=== PATIENT | male | born 1995 | race African-American/Black ===

== ENCOUNTER 2016-05-12 05:34 | Emergency (ER) | payer OTHER ==
--- NOTE | ~2016-05-12 | EKG ---
PATIENT: DEMARIO CORDOBA UNIT #: [id number] Ventricular Rate: 63 BPM Atrial Rate: 63 BPM P-R Interval: 156 ms QRS Duration: 90 ms Q-T Interval: 360 ms QTC Calculation(Bezet): 368 ms P Midway: 52 degrees Calculated R Midway: 46 degrees Calculated T Midway: 38 degrees Diagnosis Line: Normal sinus rhythm with sinus arrhythmia Diagnosis Line: Minimal voltage criteria for LVH, may be normal Diagnosis Line: variant Diagnosis Line: Early repolarization Diagnosis Line: Borderline ECG Diagnosis Line: When compared with ECG of 06-DEC-2012 23:33, Diagnosis Line: T wave amplitude has increased in Anterior leads Diagnosis Line: Confirmed by GIANNI DUGAN MD ([id number]) on Diagnosis Line: 05/14/2016 11:58:23 PM INTERPRETING MD: RITCHIE ROMAN
[~2016-05-12 05:34] MED LIST: ALBUTEROL17 GM; ANTIVERT PO; ASTHMACORT; AZITHROMYCIN250 MG PO; IBUPROFEN800 MG PO; MEDROL DOSEPAK4 MG PO; MOTRIN600 MG PO; ROBITUSSIN DM PO; VOLTAREN75 MG PO
== END 2016-05-12 05:40 | disposition home or self-care (01) ==
LOC: CED 05:34
DX: J45.909 Unspecified asthma, uncomplicated (principal); F17.200 Nicotine dependence, unspecified, uncomplicated
CPT/HCPCS: 93005; 94640; 99283

== ENCOUNTER 2016-08-09 09:38 | Emergency (ER) | payer OTHER ==
--- NOTE | ~2016-08-09 | CR181 ---
[facility] A Service of [facility] & [facility] RADIOLOGY TEXT RESULTS PATIENT: DEMARIO CORDOBA LOCATION: [place] : 94 UNIT #: [id number] AGE: [address]: Faith Lee SEX: M ORDER DR: [id number] [facility] [address] [place], [place] [address] [id number] MR#: [id number] Acc #: [id number] NAME: DEMARIO CORDOBA : 1995 SEX: M STUDY DATE/TIME: 08/09/2016 09:57 UNIT: [facility] ROOM: STUDY DESCRIPTION: CR Lumbar Spine 2 or 3 Views Attending Physician: Faith Lee P.A.-C. Ordering Physician: Faith Lee P.A.-C. Primary Care Physician: [facility] MEDICAL IMAGING REPORT This report is preliminary unless electronic signature is present EXAM Lumbar spine series, 08/09/2016 09:57 hours HISTORY 21-year-old complaining of 1-week history of low back pain. Worsening symptoms today after lifting a box at work today. COMPARISON None FINDINGS AP and lateral views of the lumbar spine and a cone lateral view of the lumbosacral junction were performed. There are five non-rib bearing lumbar type vertebrae without fracture or malalignment. There is diminished disc height at L5-S1 which could be due to partial transitional anatomy with partial sacralization of L5. Facet joints appear normal. IMPRESSION There is diminished disc height at L5-S1 which could be due to degenerative disc disease but could also be related to partially transitional, partially sacralized L5 vertebra. There is no fracture, malalignment or spurring. Sacrum and sacroiliac joints appear normal. Dictated by... Barbara Riley M.D. THIS IS AN ELECTRONICALLY VERIFIED REPORT Barbara Riley M.D. at 08/09/2016 2:27 PM Mark TD: 08/09/2016 11:06 JOB #: [id number] [facility] A Service of [facility] & [facility] RADIOLOGY TEXT RESULTS PATIENT: DEMARIO CORDOBA LOCATION: [facility] : [birth year] UNIT #: [id number] AGE: [address]: Faith Lee SEX: M ORDER DR: MEDICAL IMAGING REPORT Page 1 of 1 COPY
== END 2016-08-09 10:39 | disposition home or self-care (01) ==
LOC: CED 09:38 → CFTX 09:38
DX: M51.36 Other intervertebral disc degeneration, lumbar region (principal); J45.909 Unspecified asthma, uncomplicated
CPT/HCPCS: 72100; 96372; 99283; J1885